=== PATIENT | female | born 1990 | race African-American/Black ===

== ENCOUNTER 2023-09-20 08:37 | Emergency (ER) | payer OTHER, SELFPAY ==
[2023-09-20 08:53] VITALS: BP 141/89; PULSE 83; RESP 20; TEMP 36.4; O2SAT 98
--- NOTE | 2023-09-20 08:53 | ED.GENADULT ---
HPI - General Adult General Chief complaint: REHABILITATION CONSULTANT Stated complaint: STD Exposure/Ear Pain Time Seen by Provider: 09/20/23 08:54 Source: patient, RN notes reviewed and old records reviewed Mode of arrival: ambulatory Limitations: no limitations History of Present Illness HPI narrative: 33-year-old female to [facility] for concern of exposure to syphilis. Patient states that her FX informed her 2 weeks ago that he tested positive for syphilis. Patient reports that last sexual exposure to this person was approximately 8 weeks ago. Patient states she is asymptomatic. Patient also requesting to her left ear checked, States that her hearing is decreased. Patient also requesting a wound check to left upper inner thigh and her belly button; reports that both areas are uncomfortable and draining. Patient states that she does not currently have a PCP and cannot recall her last time seen by a PCP. Patient denies headache, ear pain, sinus pain or pressure, fever, abdominal pain, nausea, vomiting, diarrhea, body aches, chills, vaginal discharge or odor, urinary changes, bowel changes, chest pain, shortness of breath. Patient endorses sore throat and mild cough for 3 weeks. patient resting comfortably in exam room. Respirations even and nonlabored. Patient able to speak in sentences without difficulty. Patient able to tolerate fluids by mouth. Patient in no acute distress. Related Data Allergies Allergy/AdvReac Type Severity Reaction Status Date / Time No Known Allergies Allergy Verified 09/20/23 08:53 Review of Systems Review of Systems: All systems reviewed & are unremarkable except as noted in HPI and below Constitutional: Constitutional: Reports as per HPI, Denies body ache(s), Denies chills, Denies fatigue and Denies fever(s) Eyes: Eyes: Reports no additional eye complaints ENT: Reports as per HPI, Reports hearing loss ( Patient endorses decreased hearing in left ear) and Reports sore throat Cardiovascular: Cardiovascular: Reports no additional cardiovascular complaints, Denies chest pain and Denies dyspnea Respiratory: Respiratory: Reports no additional respiratory complaints, Reports cough ( nonproductive) and Denies dyspnea Gastrointestinal: Gastrointestinal: Reports as per HPI, Denies dysphagia, Denies diarrhea, Denies nausea and Denies vomiting Musculoskeletal: Musculoskeletal: Reports no additional musculoskeletal complaints Integumentary/Breasts: Skin/Breast: Reports as per HPI, Reports sores ( Naval with drainage per patient) and Reports wounds ( ) Comments: wound to the left upper inner thigh. Patient reports that this was initially a burn that occurred in April that never healed properly. Patient reports that this area does currently have drainage. Neurologic: Reports system reviewed and no additional complaints, except as documented Psychiatric: Psychiatric: Reports no additional psychiatric complaints PMFSH Comments At the time of my signature, I reviewed and agree with the nursing past medical, surgical, social, and family history. There is no relevant family history pertinent to the patient complaint. Exam Const: General: cooperative, comfortable, no acute distress, alert, poor hygiene, tired appearing, well nourished and obese; No well groomed Nutritional Appearance: well nourished Orientation/consciousness: patient oriented x3 Limitations: no limitations HENMT: Head: normal to inspection Ears: TM abnormal bulging on the left, erythematous on the left, with fluid behind the TM on the left and with loss of landmarks on the left Face/Nose/Sinus: Normal external nose present, Normal nares present, normal facial exam, No erythema and No edema Face and sinus: normal facial exam, no erythema and no edema Mouth: Yes Normal oral and palatal mucosa present Throat: posterior oropharynx abnormal erythema and postnasal drainage Eyes: General: appearance normal, both eyes and all related structures Ne
[2023-09-20 09:50] LABS: EDUAAPPEAR Clear; EDUABILI 1+; EDUABLOOD Negative; EDUACOLOR1 Tea Colored; EDUAGLUCOSE Negative; EDUAKETONE Negative; EDUALEUKO Negative; EDUANITRATE Positive; EDUAPROTEIN Trace
[2023-09-20 20:23] LABS: Trichomonas Vag PCR DETECTED (NOT DETECTE)
[2023-09-20 21:00] LABS: Chlamydia trachomatis NOT DETECTED (NOT DETECTE); Neisseria gonorrhoeae PCR NOT DETECTED (NOT DETECTE)
[2023-09-21 12:32] LABS: Chlamydia trachomatis NOT DETECTED (NOT DETECTE); Neisseria gonorrhoeae PCR NOT DETECTED (NOT DETECTE)
== END 2023-09-20 09:43 | disposition home or self-care (01) ==
PROVIDERS: Emergency Provider Nurse Practitioner Family
DX: B37.2 Candidiasis of skin and nail (principal); H66.92 Otitis media, unspecified, left ear; J02.9 Acute pharyngitis, unspecified; N39.0 Urinary tract infection, site not specified; Z11.3 Encounter for screening for infections with a predominantly sexual mode of transmission
CPT/HCPCS: 81003; 87070; 87075; 87076; 87077; 87086; 87088; 87186; 87205; 87491; 87591; 87661; 99213; 99214; G0463